=== PATIENT | male | born 1965 | race Caucasian/White ===

== ENCOUNTER 2016-07-20 06:12 | Day surgery (SDC) | payer MEDICARE ==
--- NOTE | 2016-07-17 08:18 | Admit Criteria Form ---
Admission Criteria Documentation: AMBULATORY SURGERY EXCEPTION CRITERIA Ambulatory Surgery Exception Criteria ( Place 'X' for any and all applicable criteria): Surgery or procedure performed on ambulatory basis may require inpatient stay for[A] ANY ONE of the following(1)(2)(3)(4)(5)(6)(7)(8)(9): [X] I. A preoperative situation, condition, or finding that warrants inpatient stay as indicated by ANY ONE of the following: [] a) Inpatient care needed because of severity of a disease or condition rather than the surgery (eg, severe cardiac or respiratory disease, severe infection) (15) (16 ) (17) (18) [] b) Emergent procedure (eg, angioplasty for acute ischemia)(19) [] c) Complex surgical approach or situation as indicated by ANY ONE of the following(3): [] i) Open approach needed instead of usual endoscopic, transcatheter, or other less invasive procedure [] ii) Difficult approach because of previous operation [] iii) Airway monitoring required after open neck procedures(20)(21) [] iv) Large mass requiring unusually extensive dissection [] v) Additional complicating feature requiring inpatient care (eg, drain management)(22(23): [X] d) Major surgery in a pt with high anesthetic risk as indicated by ANY ONE of the following (2)(3)(5)(7)(8): [X] i) ASA risk class III or higher (severe systemic disease impairing function) [D] [] ii) Advanced age (eg, older than 85 years)(14)(24) [] iii) Symptomatic heart failure(25) [] iv) Symptomatic asthma or COPD(8)(21) [] v) Morbid obesity with hemodynamic or respiratory problems(20)( 21)(26)(27) [] vi) Obstructive sleep apnea(20)(21) [] vii) Former premature infants who are younger than 60 weeks [] viii) High risk for severe postoperative abnormalities (eg, severe postoperative hypocalcemia after parathyroidectomy for severe hyperparathyroidism)(27)( 28) [] ix) Unstable angina(25) [] e) Drug-related risk requiring inpatient stay as indicated by ANY ONE of the following(5)(10)(14)(32)(33) [] i) Procedure requires discontinuing drugs or other therapy (eg , antiarrhythmic medication, antiseizure medication), which necessitates inpatient observation or treatment.(18)(31) [] ii) Major surgery and high risk drug use as indicated by ANY ONE of the following: [] 1) Active abuse of cocaine or similar drug [] 2) Monoamine oxidase inhibitor use [] 3) Other drug identified as posing risk [] f) Inadequate outpatient care situation as indicated by ANY ONE of the following(5)(10)(14)(32)(33) [] i) Patient lives remote from medical facility and procedure has urgent complication potential, and temporary nearby residence cannot be arranged [] ii) Patient will have postprocedure incapacitation and inadequate assistance at home, or alternative level of care cannot be arranged. [] iii) Patient will have long general anesthesia or procedure side effect resolution time, and competent person to stay with patient on first postoperative night at home or alternative level of care cannot be arranged. []iv) Other inadequate outpatient situation that cannot be handled by other means [] II. A perioperative event, condition, or finding that warrants inpatient stay as indicated by ANY ONE of the following (1)(2)(3): [] a) Inadequate physiologic recovery: cardiovascular, respiratory, or hemodynamic status not normal or near preoperative baseline(18) [] b) Hemodynamic instability [] c) Patient not alert with near normal or baseline mental status [] d) Temperature not normal or as expected and not appropriate for outpatient treatment of condition [] e) Ambulatory or appropriate activity level status not yet achieved post procedure [E](34)(35)(36) [] f) Operative site not appropriate (eg, unexpected or excessive drainage or bleeding) [] g) Postoperative effects not resolved or adequately managed (eg, significant pain or vomiting not appropriate for outpatient or next level of care)(10)(12) [] h) Complicating features requiring inpatient care as indicated by ANY ONE of the following(37): [] i) Severe complications of procedure (eg, bowel injury, airway compromise, vascular injury,severe hemorrhage) [] ii) Extensive (eg, dissection far beyond usual scope of procedure ) or prolonged (eg, 120 minutes beyond usual) surgery needed requiring inpatient postoperative care [] iii) Conversion to an open or complex procedure that requires inpatient care (eg, open vs laparoscopic cholecystectomy, abdominal vs vaginal hysterectomy)(38) [] iv) Comorbid condition or test result identified during or post procedure that requires inpatient care (7) [] v) Malignant hyperthermia(30) [] vi) Other complicating feature requiring inpatient care(22)(23) Inpatient stay may be needed until ALL of the following are present (1)(2)(3)(4) (5)(6)(10)(14)(33)(40): []a) Physiologic recovery: cardiovascular, respiratory, and hemodynamic status normal or near preoperative baseline []b) Hemodynamic stability []c) Patient alert, with near normal or baseline mental status []d) Temperature appropriate: patient afebrile or temperature appropriate for outpt treatment of condition []e) Activity level appropriate: ambulatory or appropriate activity level post procedure []f) Operative site appropriate as indicated by ALL of the following: []i) Site dry or with expected drainage []ii) Any blood noted is as expected for procedure. []g) Postoperative effects resolved or managed as indicated by ALL of the following: []i) Pain management appropriate for outpatient (or next level of) care(10) []ii) Minimal nausea and vomiting: if present, successfully treated with oral medication(12) []iii) Headache, dizziness, or drowsiness (if present) are mild. []h) Voiding status acceptable as indicated by ANY ONE of the following: []i) Voiding spontaneously []ii) No voiding but instructions given for follow-up in 6 to 8 hours []iii) Urinary catheter in place, and instructions given for follow-up []i) Complicating features requiring inpatient care manageable at a lower level of care(37) []j) Comorbid conditions manageable at a lower level of care(37) The original [employer] content created by [employer] has been revised. The portions of the content which have been revised are identified through the use of italic text or in bold, and [employer] has neither reviewed nor approved the modified material. All other unmodified content is copyright [employer]. Please see references footnoted in the original [employer] edition 2016
[~2016-07-20 06:12] MED LIST: ANCEF/STERILE WATER 2 GM/20 ML 2 GM/20 ML SYRINGE IV NR; NACL 0.9% 1000 ML 1,000 ML IV SCH; PEPCID PO NR; VERSED IV NR
[2016-07-20] MEDS ORDERED: NACL BACTERIOSTATIC INFILTRATI ONE (06:42)
[2016-07-20] MEDS ORDERED: NORMODYNE IV NR (07:12)
--- NOTE | 2016-07-20 07:13 | Anesthesia Day of Surgery ---
Anesthesia Day of Surgery - Day of Surgery Patient Examined: Yes Patient H&P Reviewed: Yes Patient is NPO: Yes Beta Blockers: Yes
--- NOTE | 2016-07-20 07:13 | Anesthesia Consultation ---
Anesthesia Consult and Med Hx Date of service: 07/20/16 - Airway Anesthetic Teeth Evaluation: Good ROM Head & Neck: Adequate Mental/Hyoid Distance: Adequate Mallampati Class: Class II Intubation Access Assessment: Probably Good - Pulmonary Exam CTA: Yes - Cardiac Exam Cardiac Exam: RRR - Pre-Operative Health Status ASA Pre-Surgery Classification: ASA4 Proposed Anesthetic Plan: General - Pulmonary Hx Smoking: Yes (1/2 PPD) Hx Sleep Apnea: Yes (does not use cpap and states " he no longer has") - Cardiovascular System Hx Hypertension: Yes (1996) - Central Nervous System CVA: Yes (2008 NO RESIDUAL EFFECTS) Hx Psychiatric Problems: Yes - Gastrointestinal Hx Gastroesophageal Reflux Disease: Yes (controlled on meds) - Endocrine Hx Renal Disease: Yes Hx End Stage Renal Disease: Yes (dialysis tues,th,sat) Hx Insulin Dependent Diabetes: Yes - Hematic Hx Anemia: Yes (hx) - Other Systems Hx Cancer: No Hx Obesity: Yes (BMI > 35)
[2016-07-20] MEDS ORDERED: HEPARIN 10,000 UNITS/10 ML ONE (07:15)
[2016-07-20] MEDS ORDERED: NACL 0.9% 250ML 250 ML ONE (07:15)
[2016-07-20 07:25] LABS: BUN/Creatinine Ratio 8.12; Calcium 9.1 mg/dL (8.4-10.2); Chloride 90.6 mmol/L (98-107); Potassium 4.3 mmol/L (3.6-5.0)
[2016-07-20] MEDS ORDERED: DIPRIVAN 10 MG/ML IV ONE (07:28)
[2016-07-20] MEDS ORDERED: XYLOCAINE MPF 2% ONE (07:28)
[2016-07-20] MEDS ORDERED: SUBLIMAZE ONE (07:28)
[2016-07-20 07:35] LABS: Hemoglobin 11.4 gm/dl (11.8-15.2); Mean Corpuscular HGB Conc 34 % (32-34); Mean Corpuscular Hemoglobin 29 pg (28-32); Mean Corpuscular Volume 86 fl (84-94); Platelet Count 238 K/mm3 (140-440); Red Blood Count 3.97 M/mm3 (3.65-5.03); Red Cell Distribution Width 17.9 % (13.2-15.2); White Blood Count 4.6 K/mm3 (4.5-11.0)
[2016-07-20] MEDS ORDERED: NACL 0.9% ONE (08:16)
[2016-07-20] MEDS ORDERED: DILAUDID IV PRN (08:36)
[2016-07-20] MEDS ORDERED: PERCOCET 5/325 PO PRN (08:36)
[2016-07-20] MEDS ORDERED: HEPARIN 10,000 UNITS/10 ML 2,000 UNIT in NACL 0.9% 500 ML 500 ML IR ONE (08:43)
[2016-07-20] MEDS ORDERED: NACL 0.9% 1000 ML IR ONE (08:47)
[2016-07-20] MEDS ORDERED: MARCAINE 0.5% INFILTRATI ONE ×2 (08:47)
[2016-07-20] MEDS ORDERED: ZOFRAN ONE (09:00)
[2016-07-20] MEDS ORDERED: MARCAINE 0.5% 30 ML INFILTRATI ONE (09:40)
[2016-07-20] MEDS ORDERED: NEO SYNEPHRINE ONE (09:48)
--- NOTE | 2016-07-20 10:10 | Short Stay Summary ---
Short Stay Documentation Date of service: 07/20/16 Narrative H&P: See H&P - History H&P: obtained from office - Allergies and Medications Current Medications: Allergies shellfish derived Adverse Reaction (Verified 07/12/14 13:43) Shortness of Breath THROAT CLOSES Home Medications Medication Instructions Recorded Confirmed Last Taken Type Cinacalcet HCl [Sensipar] 60 mg PO DAILY 07/12/14 07/20/16 07/18/16 History Citalopram Hydrobromide [celeXA] 20 mg PO DAILY 07/12/14 07/20/16 07/19/16 History Clonidine HCl [Catapres] 0.3 mg PO BID 07/12/14 07/20/16 07/19/16 23:00 History Gabapentin [Neurontin] 200 mg PO BID 07/12/14 07/20/16 07/19/16 History Labetalol [Normodyne TAB] 200 mg PO BID 07/12/14 07/20/16 07/19/16 23:00 History NIFEdipine [NIFEdipine XL] 30 mg PO BID 07/12/14 07/20/16 07/19/16 23:00 History Pantoprazole [Protonix TAB] 40 mg PO QDAY 07/12/14 07/20/16 07/19/16 History Albuterol Sulfate [Proair Hfa] 2 puff IH QDAY 07/15/16 07/20/16 07/19/16 History Insulin Lispro [HumaLOG VIAL] 15 units SQ TID 07/15/16 07/20/16 07/19/16 History Tizanidine HCl [tiZANidine] 2 mg PO BID 07/15/16 07/20/16 07/19/16 History Insulin Glargine [Lantus VIAL] 45 units SQ QHS 07/20/16 07/20/16 07/19/16 History Active Medications Famotidine (Pepcid) 20 mg PO PREOP NR Stop: 07/20/16 23:45 Last Admin: 07/20/16 06:52 Dose: 20 mg Hydromorphone HCl (Dilaudid) 0.5 mg IV Q10MIN PRN PRN Reason: Pain , Severe (7-10) Stop: 07/20/16 16:00 Cefazolin Sodium (Ancef/Sterile Water 2 Gm/20 Ml) 2 gm in 20 mls @ 80 mls/hr IV PREOP NR PRN Reason: Protocol Stop: 07/20/16 23:59 Sodium Chloride (Nacl 0.9% 1000 Ml) 1,000 mls @ 42 mls/hr IV DIRECT KOLTON Last Admin: 07/20/16 06:55 Dose: 42 mls/hr Midazolam HCl (Versed) 2 mg IV PREOP NR Stop: 07/20/16 23:59 Last Admin: 07/20/16 07:52 Dose: 2 mg Oxycodone/Acetaminophen (Percocet 5/325) 1 tab PO ONCE PRN PRN Reason: Pain, Moderate (4-6) Stop: 07/20/16 16:00 - Brief post op/procedure progress note Date of procedure: 07/20/16 Pre-op diagnosis: Consultations of Dialysis Access Post-op diagnosis: same Procedure: Excision of Left Arm AV Fistula and Left AV Graft Anesthesia: ROSS Surgeon: ABHI ESPANA Estimated blood loss: other (300 ml) Pathology: list (left AV fistula and AV grafts and the pathology) Specimen disposition: to lab Condition: stable - Disposition Condition at discharge: Good Disposition: DISCHARGED TO HOME OR SELFCARE Short Stay Discharge Plan Activity: other (no heavy lifting with left arm) Wound: open to air, keep clean and dry, remove dressing (okay to remove the Issa bandage in 24 hours), other (okay to wash the wound with soap and water but do not soak in water) Follow up with: ABHI ESPANA MD [Staff Physician] - 14 Days Prescriptions: HYDROcodone/APAP 7.5-325 [Timber 7.5/325] 1 each PO Q6HR PRN #60 tablet PRN Reason: Pain
--- NOTE | 2016-07-20 10:26 | Operative Report ---
Operative Report Operative Report: Date of Procedure: 07/20/2016 Pre-operative Diagnosis: Complications of Dialysis Access Post-operative Diagnosis: Same Procedure(s): 1. Excision of Left Arm AV Fistula and Left AV Graft Surgeon: Franklyn Garcia M.D. Nylon Machine Operator: Alexander Anesthesia: Gen. endotracheal anesthesia EBL: 300 mL Counts: Correct Complications: None Condition: Stable Findings: Successful excision of thrombosed left AV fistula and portions of thrombosed AV graft. Specimen: Left AV fistula and AV grafts and the pathology Indication: The patient is a 51-year-old male with a history of end-stage renal disease and multiple fistula creations in his left arm. He is currently on hemodialysis through a Korin fistula however has a large thrombosed upper arm fistula that limits his full range of motion of the upper arm. He is in need of excision of this fistula to increase his range of motion. He was given the risks, benefits , and alternative procedures and consented to procedure. Description of Procedure: The patient was brought into the operating room and laid in supine position. After general endotracheal anesthesia was achieved his left arm was prepped and draped in normal sterile fashion. A longitudinal incision was then created over the center of the fistula which extended from the upper arm to the antecubital crease. Cautery was then used to continue the dissection down to the fistula and sharp dissection was used to dissect this away from the surrounding soft tissue. There was a graft that had been sewn into the fistula as the inflow there was additionally partially excised. The venous outflow of the thrombosed vessel was ligated and oversewn with 3-0 silk. The arterial inflow was then ligated and the redundant portion of the fistula was used to close the arteriotomy. Hemostasis within the wound was then achieved with a combination of electrocautery and quick clot. Once hemostasis was achieved the redundant skin was excised. The wound was then anesthetized with Marcaine and closed in 2 layers using a 3-0 Vicryl and running fashion in the deep dermal layer and a 4-0 Monocryl in running fashion in the subcuticular layer. The wound was then dressed with Dermabond and then cover with a Telfa and wrapped with a loose 3 inch Issa bandage. The patient tolerated the procedure well. All sponge, needle, and instrument counts were correct. The patient was taken to the recovery room in stable condition.
--- NOTE | 2016-07-20 10:59 | Post Anesthesia Evaluation ---
- Post Anesthesia Evaluation Patient Participated: Yes Airway Patent: Yes Stable Respiratory Function: Yes Nausea/Vomiting: No Temp > 96.8F: Yes Pain Manageable: Yes Adequeate Hydration: Yes Anesthesia Complications: No Block Receding Appropriately: Not Applicable Patient on Ventilator: No
[2016-07-20 13:36] VITALS: BP 123/90
== END 2016-07-20 06:13 | disposition home or self-care (01) ==
LOC: OR 06:12
PROVIDERS: ATTEND Surgery Vascular Surgery
DX: T82.868A Thrombosis due to vascular prosthetic devices, implants and grafts, initial encounter (principal); E11.22 Type 2 diabetes mellitus with diabetic chronic kidney disease; I12.0 Hypertensive chronic kidney disease with stage 5 chronic kidney disease or end stage renal disease; N18.6 End stage renal disease; F17.210 Nicotine dependence, cigarettes, uncomplicated; D64.9 Anemia, unspecified; E66.9 Obesity, unspecified; Z68.35 Body mass index [BMI] 35.0-35.9, adult; Z99.2 Dependence on renal dialysis; Z86.73 Personal history of transient ischemic attack (TIA), and cerebral infarction without residual deficits; Y83.2 Surgical operation with anastomosis, bypass or graft as the cause of abnormal reaction of the patient, or of later complication, without mention of misadventure at the time of the procedure
CPT/HCPCS: 36415; 36833; 80048; 82962; 85025; 88304; C1757; J0690; J1644; J2250; J2370; J2405; J2704; J3010; J7030; J7040; J7050